=== PATIENT | male | born 1985 | race Caucasian/White ===

== ENCOUNTER 2017-03-06 20:47 | Emergency (ER) | payer OTHER ==
[~2017-03-06] VITALS: Ht 175.3 cm; Wt 69.8 kg
[~2017-03-06 20:47] MED LIST: IBUPROFEN800 MG PO; TRAMADOL HCL50 MG PO
[2017-03-06 21:55] LABS: ADD MIUA? NO; BILIRUBIN NEGATIVE; BLOOD NEGATIVE; GLUCOSE (STRIP) NEGATIVE; KETONES NEGATIVE; LEUKOCYTES NEGATIVE; NITRITE NEGATIVE; PROTEIN (STRIP) NEGATIVE; SPECIFIC GRAVITY 1.014 (1.000-1.030); UCUL ADDED? NO; UROBILINOGEN 0.2 MG/DL (0.2-1.0)
[2017-03-06 21:59] LABS: COLOR LT. YELLOW ((YELLOW))
[2017-03-06 22:00] LABS: HEMATOCRIT 41.4 % (38.0-50.0); MCH 30.8 PG (29.0-34.0); MCHC 33.6 G/DL (30.0-36.0); MCV 91.6 FL (86-99); MEAN PLAT.VOLUME 10.3 uM^3 (9.0-12.4); PLATELET COUNT 211 K/uL (156-360); RBC DIS.WIDTH-CV 12.5 % (11.8-14.6); RBC DIS.WIDTH-SD 41.6 % (39-53); RED BLOOD COUNT 4.52 M/uL (4.00-5.50)
[2017-03-06 22:10] LABS: CHLORIDE 106 mEq/L (99-109); POTASSIUM 3.4 mEq/L (3.7-5.4); SODIUM 140 mEq/L (136-147)
[2017-03-06 22:12] LABS: GLUCOSE 104 mg/dL (70-99)
[2017-03-06 22:13] LABS: D-DIMER ELISA < 0.15 mg/L FEU (< 0.57)
[2017-03-06 22:14] LABS: ANION GAP 6 MEQ/L (2-14); TOTAL BILIRUBIN 0.3 mg/dL (0.0-1.0)
[2017-03-06 22:16] LABS: ALKALINE PHOSPHATASE 43 IU/L (3-129); GFR ESTIMATE (CALCULATED) > 59 mL/min/
[2017-03-06 22:17] LABS: UREA NITROGEN (BUN) 11 mg/dL (9-23)
[2017-03-06 22:19] LABS: LIPASE 19 U/L (1.0-51.0)
[2017-03-06 22:23] LABS: TROP-I INTERPRETATION NEGATIVE; TROPONIN-I < 0.01 ng/mL (0.0-0.30)
[2017-03-06 22:53] VITALS: BP 136/79
== END 2017-03-06 22:54 | disposition home or self-care (01) ==
LOC: EME 20:47
PROVIDERS: Physician Assistant
DX: R07.89 Other chest pain (principal); I10 Essential (primary) hypertension; F17.200 Nicotine dependence, unspecified, uncomplicated
CPT/HCPCS: 71020; 80053; 81003; 83690; 84484; 85027; 85379; 93005; 99281; 99283